=== PATIENT | female | born 1965 | race Two or more races ===

== ENCOUNTER 2018-07-10 10:59 | Outpatient (CLI) | payer OTHER | END 2018-07-10 11:02 | disposition home or self-care (01) | LOC: MAMO-SONO 10:59 | DX: N60.12 Diffuse cystic mastopathy of left breast (principal); N60.11 Diffuse cystic mastopathy of right breast; Z12.31 Encounter for screening mammogram for malignant neoplasm of breast ==

== ENCOUNTER → 2018-07-10 | Outpatient (CLI) | payer OTHER | END | disposition home or self-care (01) | LOC: NUCLEAR 12:14 | DX: M81.0 Age-related osteoporosis without current pathological fracture (principal) ==

== ENCOUNTER → 2020-07-04 | Emergency (ER) | payer OTHER ==
[~2020-07-04] VITALS: Ht 165.1 cm; Wt 74.4 kg
[~2020-07-04] MED LIST: CEFADROXIL500 MG PO
== END | disposition home or self-care (01) ==
LOC: ER 13:53
DX: S61.220A Laceration with foreign body of right index finger without damage to nail, initial encounter (principal); W45.8XXA Other foreign body or object entering through skin, initial encounter; Y93.89 Activity, other specified; Y92.090 Kitchen in other non-institutional residence as the place of occurrence of the external cause; Y99.8 Other external cause status

== ENCOUNTER 2023-02-25 15:57 | Emergency (ER) | payer OTHER ==
[~2023-02-25] VITALS: Ht 165.1 cm; Wt 76.2 kg
[2023-02-25 18:43] LABS: HEMATOCRIT 43.7 % (36.0-45.00); HEMOGLOBIN 14.7 g/dL (12.0-15.00); MEAN CELL VOLUME 79.5 fL (80.00-100.00); MEAN CORPUSCULAR HEMOGLOBIN 26.7 pg (27.00-32.0); MEAN CORPUSCULAR HGB CONC 33.6 g/dl (32.0-36.0); PLATELET COUNT 341 K/uL (150-450); RED CELL DISTRIBUTION WIDTH 14.1 % (11.5-14.5)
[2023-02-25 18:50] LABS: PH,URINE 5.5 (5.0-8.0); URINE APPEARANCE Clear; URINE BILIRRUBIN Negative (NEGATIVE); URINE BLOOD Negative; URINE COLOR Yellow; URINE GLUCOSE Negative (NEGATIVE); URINE LEUKOCYTE Trace; URINE NITRATE Negative; URINE PROTEIN Negative (NEGATIVE); URINE UROBILINOGEN 0.2 E.U./dl
[2023-02-25 18:51] LABS: URINE BACTERIA 42.8 uL (0.0-1933); URINE EPITHELIAL CELLS 6.7 uL (0.0-38.8); URINE RBC 3.1 uL (0.0-20.8); URINE WBC 27.9 uL (0.0-23.2)
[2023-02-25 19:09] LABS: BILIRUBIN TOTAL 0.32 mg/dL (0.3-1.2); CALCIUM 9.1 mg/dL (8.5-10.1); CREATININE SERUM 0.69 mg/dL (0.55-1.02); GFR 87.69; GLOBULINA 4.2 G/DL (2.4-3.5); POTASSIUM 3.47 mEq/L (3.5-5.1); TOTAL PROTEIN 8.2 gm/dL (6.4-8.2)
[2023-02-25] MEDS ORDERED: NORFLEX100MG PO (19:40)
[2023-02-25] MEDS ORDERED: DICLOFENAC SODI75 MG PO (19:40)
== END 2023-02-25 19:58 | disposition home or self-care (01) ==
LOC: ER 15:57
PROVIDERS: General Practice
DX: M54.89 Other dorsalgia (principal); N20.0 Calculus of kidney

== ENCOUNTER 2023-04-08 17:05 | Emergency (ER) | payer OTHER ==
[~2023-04-08] VITALS: Ht 165.1 cm; Wt 76.2 kg
[~2023-04-08 17:05] MED LIST changes: +DICLOFENAC SODI75 MG PO; +NORFLEX100MG PO
== END 2023-04-08 19:08 | disposition home or self-care (01) ==
LOC: ER 17:05
DX: L02.91 Cutaneous abscess, unspecified (principal)